=== PATIENT | female | born 1980 | race Caucasian/White ===

== ENCOUNTER 2016-07-01 06:25 | Inpatient (IN) | payer BC ==
[~2016-07-01] VITALS: Ht 162.6 cm; Wt 81.6 kg
[2016-07-01] VITALS (38 sets, daily range): BP systolic 102–132; BP diastolic 65–105; PULSE 70–151; RESP 17–19; TEMP 97.4–98; O2SAT 100
[~2016-07-01 06:25] MED LIST: ENBR50IN3 SC; FENU610C PO; IBUP800 PO; PRED5 PO; VAGI10TA VA
[2016-07-01] MEDS ORDERED: ENBR50IN2 SQ (08:21)
[2016-07-01] MEDS ORDERED: PROM50TA RECTAL (08:21)
[2016-07-01] MEDS ORDERED: PROT40TA PO (08:21)
[2016-07-01] MEDS ORDERED: PROM25TA5 PO (08:21)
[2016-07-01] MEDS ORDERED: LACTATED RINGER'S 1000 ML INJ 1,000 ML IV PRN (08:33)
[2016-07-01] MEDS ORDERED: LIDOCAINE HCL 1% 50 ML VIAL I-DERMAL PRN (08:45)
[2016-07-01] MEDS ORDERED: SODIUM CHLORID 0.9% 500 ML INJ 500 ML IV PRN (08:45)
[2016-07-01] MEDS ORDERED: LIDOCAINE HCL 1% 50 ML VIAL INFIL PRN (08:45)
[2016-07-01] MEDS ORDERED: CITRIC ACID-SODIUM CITRATE LIQ 30 ML UDC PO SCH (08:45)
[2016-07-01] MEDS ORDERED: OXYTOCIN 30 UNITS-500ML PREMIX 500 ML IV SCH (08:45)
[2016-07-01] MEDS ORDERED: OXYTOCIN 30 UNITS-500ML PREMIX 500 ML IV ONE ×2 (08:45→14:15)
[2016-07-01] MEDS ORDERED: MINERAL OIL 10 ML VIAL TOPICAL PRN (08:45)
[2016-07-01] MEDS ORDERED: SODIUM CHLOR 0.9% 1000 ML INJ 1,000 ML IV PRN (08:53)
[2016-07-01] MEDS: LACTATED RINGER'S 1000 ML INJ 1,000 ML IV SCH ×2 (08:54→13:10)
[2016-07-01] MEDS ORDERED: PENICILLIN G POTASSIUM INJ 5,000,000 UNITS in SODIUM CHLORIDE 0.9% INJ 100 ML IV ONE (09:00)
[2016-07-01 09:22] LABS: BASOPHIL % 0.3 % (0.0-2.0); EOSINOPHIL # 0.1 TH/MM3 (0-0.4); EOSINOPHIL % 0.9 % (0.0-4.0); HEMATOCRIT 37.2 % (35.0-46.0); HEMO FLAGS DIFF FINAL; LYMPH % 29.3 % (9.0-44.0); LYMPHOCYTE # 2.9 TH/MM3 (1.0-4.8); MEAN CELL VOLUME 87.4 FL (80.0-100.0); MEAN CORPUSCULAR HGB CONC 34.3 % (32.0-36.0); MONO % 9.7 % (0.0-8.0); NEUT % 59.8 % (16.0-70.0); PLATELET COUNT 223 TH/MM3 (150-450); RED BLOOD COUNT 4.26 MIL/MM3 (4.00-5.30); RED CELL DISTRIBUTION WIDTH 13.8 % (11.6-17.2)
[2016-07-01 09:27] LABS: BACTERIA, URINE OCC /hpf; BLOOD, URINE NEG (NEG); COMMENT (UR) CULT NOT INDICATED; CULTURE IF INDICATED CULT NOT INDICATED; GLUCOSE,URINE NEG (NEG); KETONE, URINE TRACE mg/dL (NEG); MUCUS URINE FEW /lpf (OCC); NITRITE,URINE NEG (NEG); PH, URINE 6.5 (5.0-8.5); SQUAMOUS EPITHELIAL CELL URINE 3 /hpf (0-5); URINE COLOR YELLOW (YELLW/STRAW)
--- NOTE | 2016-07-01 09:27 | MH ---
cc: PAMELA BOCANEGRA DATE OF ADMISSION: 07/01/2016 REASON FOR ADMISSION Induction of labor. HISTORY OF PRESENT ILLNESS Ms. Devine is a 36-year-old white female para 1-0-1-1 whose last menstrual period and early ultrasound put her at 39+ weeks. Her cervix was 3 in the office, 80%. She desired elective induction. After to discussion of the risks and benefits, she is admitted for that same. PAST OB HISTORY She is para 1-0-1-1. She had one TAB. She was on methotrexate. She had one full-term without complications. 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 PAST MEDICAL HISTORY Remarkable for gastroesophageal reflux disease. Anxiety. PAST SURGICAL HISTORY She had orthopedic surgery on her right knee as a child. SOCIAL HISTORY She . Never smoked. 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 She really uses alcohol, none in . FAMILY HISTORY Remarkable for high blood pressure, osteoporosis and cervical cancer in her sister. ALLERGIES REGLAN. MORPHINE. CODEINE. MEDICATIONS COMING INTO THE HOSPITAL vitamins 1 p.o. q. Day. Folic acid extra 1 p.o. q. Day. Enbrel 500 mg/mL q. Week. REVIEW OF SYSTEMS No headaches nor shortness of breath nor chest pressure pain. The baby is active and moving. No rupture of membranes. She is having some regular contractions, although they are not painful. PHYSICAL EXAMINATION GENERAL: A well-developed, well-nourished female in no acute distress. HEENT: Normocephalic, atraumatic. NECK: Supple. Trachea is in the midline. No thyromegaly or adenopathy. CHEST: Clear to auscultation. HEART: Regular rate and rhythm. ABDOMEN: Gravid, nontender. Fundal height seems appropriate. Estimated weights 7, 6. PELVIC: Her cervix is 3 cm, at 80%, vertex, -2. Rupture of membranes reveals clear fluid. EXTREMITIES: There is slight lower extremity edema, otherwise normal. ASSESSMENT AND PLAN 1. Intrauterine at 39 weeks 2. Positive GBS. We will go ahead and start her on some penicillin and notify the Nursery. 3. GERD. She has been on Protonix. Once the baby delivers, I think she will be fine. We will just follow her and use medication as needed. R. Pamela Bocanegra MD RJV/SSB /8:40 AM /9:20 AM
[2016-07-01] MEDS ORDERED: fentaNYL 2MCG-BUPIV 0.125% INJ 100 ML ONE (10:26)
[2016-07-01] MEDS ORDERED: ePHEDrine/NS 25 MG/5 ML SYR ONE (11:07)
[2016-07-01] MEDS ORDERED: PENICILLIN G POTASSIUM INJ 2,500,000 UNITS in SODIUM CHLORIDE 0.9% INJ 100 ML IV SCH (13:00)
[2016-07-01] MEDS ORDERED: ePHEDrine/NS 25 MG/5 ML SYR IV PRN (13:15)
[2016-07-01] MEDS ORDERED: fentaNYL 2MCG-BUPIV 0.125% 100 ML EPIDURAL SCH (13:15)
[2016-07-01] MEDS ORDERED: NO SYSTEM NARCOTICS PRN (13:15)
[2016-07-01] MEDS ORDERED: DO NOT ADMINISTER ANTICOAGULANTS PRN (13:15)
--- NOTE | 2016-07-01 14:06 | PD.OB.DELI ---
Delivery Date: Jul 01, 2016 Anesthesia: Epidural Episiotomy: None Vaginal Delivery: Normal Presentation: Occiput anterior Nuchal Cord: x1 Delayed cord clamping (45 sec): Yes : Male One Minute : 9 Five Minute : 9 Weight: 8/5 Placenta: Spontaneous delivery, Intact, 3 vessel cord Laceration: Perineal laceration, 2 deg Repair: Vicryl running Additional Information nice delivery of Rony Ness (dad is Mendez) Tight cord reduced EBL was 350cc Eduardo Bocanegra MD Jul 01, 2016 14:06
[2016-07-01] MEDS ORDERED: BENZOCAINE 20% TOPICAL SPRAY 60 ML CAN TOPICAL PRN (14:15)
[2016-07-01] MEDS ORDERED: ALUMINUM/MAGNESIUM/SIMETH 30 ML CUP PO PRN (14:15)
[2016-07-01] MEDS ORDERED: ZOLPIDEM TARTRATE 5 MG TAB PO PRN (14:15)
[2016-07-01] MEDS ORDERED: ACETAMINOPHEN 325 MG TAB PO PRN (14:15)
[2016-07-01] MEDS ORDERED: WITCH HAZEL 50%/GLYCERIN 12.5% 40 PAD JAR TOPICAL PRN (14:15)
[2016-07-01] MEDS ORDERED: SODIUM CHLORIDE 0.9% FLUSH 10 ML FLUSH IV FLUSH PRN (14:15)
[2016-07-01] MEDS ORDERED: ONDANSETRON ODT 4 MG TAB PO PRN (14:15)
[2016-07-01] MEDS ORDERED: ONDANSETRON HCL 4 MG/2 ML VIAL ONE (14:43)
[2016-07-01] MEDS: IBUPROFEN 600 MG TAB PO PRN ×2 (15:13→22:45)
[2016-07-01] MEDS ORDERED: DIPHTH/TETANUS/ACEL PERTUSSIS (BOOSTER) 0.5 ML VIAL/PFS IM ONE (16:00)
[2016-07-01] MEDS ORDERED: MEASLES, MUMPS, RUBELLA VACCINE 0.5 ML VIAL SQ ONE (16:00)
[2016-07-01] MEDS: DOCUSATE SODIUM 50 MG/SENNA 8.6 MG TAB PO PRN (19:51)
[2016-07-01] MEDS: oxyCODONE/ACETAMINOPHEN 5 MG/325 MG TAB PO PRN (19:51)
[2016-07-01] MEDS ORDERED: SODIUM CHLORIDE 0.9% FLUSH 10 ML FLUSH IV FLUSH SCH (21:00)
[2016-07-02] MEDS: oxyCODONE/ACETAMINOPHEN 5 MG/325 MG TAB PO PRN ×4 (03:42→21:57)
--- NOTE | 2016-07-02 08:32 | HHI.OB ---
Subjective Post Day: 1 Remarks Doing well, pain is well controlled Bleeding is normal Baby is good Objective Vitals/I&O Vital Signs Date Time Temp Pulse Resp B/P Pulse Ox O2 Delivery O2 Flow Rate FiO2 07/01/16 19:44 98.0 07/01/16 19:44 70 18 109/68 100 07/01/16 15:48 84 103/71 07/01/16 15:15 80 113/74 07/01/16 15:00 90 114/87 07/01/16 14:46 92 118/85 07/01/16 14:31 96 128/91 07/01/16 14:15 90 116/80 07/01/16 14:00 97.8 07/01/16 13:45 18 07/01/16 13:31 151 132/105 07/01/16 13:00 91 102/66 07/01/16 12:55 88 07/01/16 12:40 84 07/01/16 12:35 73 07/01/16 12:30 89 116/77 07/01/16 12:30 71 07/01/16 12:25 82 07/01/16 12:22 97.8 07/01/16 12:20 90 07/01/16 12:15 88 07/01/16 12:15 85 107/80 07/01/16 12:10 80 07/01/16 12:05 82 07/01/16 12:00 19 07/01/16 12:00 88 07/01/16 12:00 79 106/75 07/01/16 11:55 83 109/69 07/01/16 11:55 78 07/01/16 11:50 78 07/01/16 11:50 77 113/65 07/01/16 11:45 95 07/01/16 11:45 82 106/66 07/01/16 11:40 84 07/01/16 11:40 82 07/01/16 11:40 106/68 07/01/16 11:35 81 07/01/16 11:35 89 108/68 07/01/16 11:30 94 111/66 07/01/16 11:30 81 07/01/16 11:25 86 07/01/16 11:25 92 111/72 07/01/16 11:20 83 07/01/16 11:20 94 114/71 07/01/16 11:15 89 07/01/16 11:15 91 114/83 07/01/16 11:12 89 114/65 07/01/16 11:10 90 07/01/16 11:05 88 07/01/16 11:00 86 130/81 07/01/16 11:00 87 18 07/01/16 10:00 82 18 118/82 07/01/16 10:00 97.4 07/01/16 10:00 118/82 07/01/16 09:25 75 07/01/16 09:00 17 07/01/16 09:00 75 117/81 Objective Remarks GENERAL: Well-nourished, well-developed patient. CARDIOVASCULAR: Regular rate and rhythm without murmurs, gallops, or rubs. RESPIRATORY: Breath sounds equal bilaterally. No accessory muscle use. ABDOMEN/GI: Abdomen soft, non-tender. Fundus: Firm, non-tender at umbilicus. GENITOURINARY: Light to moderate bleeding. EXTREMITIES: No cyanosis or edema, non-tender, without signs of DVT. Medications and IVs Current Medications Medications (Trade) Dose Ordered Sig/Aide Route Start Time Stop Time Status Last Admin (NS Flush) 2 ml BID IV FLUSH 07/01/16 21:00 (NS Flush) 2 ml UNSCH PRN IV FLUSH 07/01/16 14:15 07/01/16 15:19 (Tylenol) 650 mg Q4H PRN PO 07/01/16 14:15 (Motrin) 600 mg Q6H PRN PO 07/01/16 14:15 07/01/16 22:45 (Percocet 5-325 Mg) 1 tab Q4H PRN PO 07/01/16 14:15 (Percocet 5-325 Mg) 2 tab Q4H PRN PO 07/01/16 14:15 07/02/16 03:42 (Americaine 20% Top Spr) 1 spray Q4H PRN TOPICAL 07/01/16 14:15 07/01/16 19:52 (Tucks Pads) 1 applic QID PRN TOPICAL 07/01/16 14:15 07/01/16 19:51 (Nelia-Colace) 2 tab Q12H PRN PO 07/01/16 14:15 07/01/16 19:51 (Ambien) 5 mg HS PRN PO 07/01/16 14:15 (Mag-Al Plus Susp Liq) 15 ml Q8H PRN PO 07/01/16 14:15 (Zofran Odt) 4 mg Q6H PRN PO 07/01/16 14:15 Assessment/Plan Assessment and Plan PPD #1 Routine fpc tomorrow with baby Eduardo Bocanegra MD Jul 02, 2016 08:32
[2016-07-02] MEDS: IBUPROFEN 600 MG TAB PO PRN ×3 (08:48→21:58)
--- NOTE | 2016-07-02 09:04 | HHI.DCPOC ---
Discharge Care Plan Diagnosis: (1) (normal spontaneous vaginal delivery) Your Health Problems Are: Vaginal delivery Report Symptoms to Your Doctor -Temperate above 100.5 degrees -Redness, of incision or excessive or foul smelling drainage -Unusual pain or calf pain -Increased vaginal bleeding -Painful or difficulty urinating -Feelings of extreme sadness or anxiety after 2 weeks Goals to Promote Your Health * To prevent worsening of your condition and complications * To maintain your health at the optimal level Directions to Meet Your Goals Take your medications as prescribed Follow your dietary instruction Follow activity as directed Ensure plenty of rest for recovery Drink fluids for hydration Keep your appointments as scheduled Take your immunizations and boosters as scheduled If your symptoms worsen call your PCP, if no PCP go to Urgent Care Center or Emergency Room Smoking is Dangerous to Your Health. Avoid second hand smoke Call the 24-hour crisis hotline for domestic abuse at Katia Howell Jul 02, 2016 09:04
[2016-07-02 19:55] VITALS: BP 112/84; PULSE 88; RESP 16; TEMP 98.5; O2SAT 99
[2016-07-02] MEDS: DOCUSATE SODIUM 50 MG/SENNA 8.6 MG TAB PO PRN (21:57)
[2016-07-03] MEDS: IBUPROFEN 600 MG TAB PO PRN ×2 (04:31→10:52)
[2016-07-03] MEDS ORDERED: IBUP-232 PO (08:15)
[2016-07-03] MEDS ORDERED: OXYC1TAB63 PO (08:15)
--- NOTE | 2016-07-03 08:48 | HHI.OB ---
Subjective Post Day: 2 Objective Vitals/I&O Vital Signs Date Time Temp Pulse Resp B/P Pulse Ox O2 Delivery O2 Flow Rate FiO2 07/02/16 19:55 88 16 112/84 99 07/02/16 19:55 98.5 Objective Remarks GENERAL: Well-nourished, well-developed patient. CARDIOVASCULAR: Regular rate and rhythm without murmurs, gallops, or rubs. RESPIRATORY: Breath sounds equal bilaterally. No accessory muscle use. ABDOMEN/GI: Abdomen soft, non-tender. Fundus: Firm, non-tender at umbilicus. GENITOURINARY: Light to moderate bleeding. EXTREMITIES: No cyanosis or edema, non-tender, without signs of DVT. Medications and IVs Current Medications Medications (Trade) Dose Ordered Sig/Aide Route Start Time Stop Time Status Last Admin (NS Flush) 2 ml BID IV FLUSH 07/01/16 21:00 (NS Flush) 2 ml UNSCH PRN IV FLUSH 07/01/16 14:15 07/01/16 15:19 (Tylenol) 650 mg Q4H PRN PO 07/01/16 14:15 (Motrin) 600 mg Q6H PRN PO 07/01/16 14:15 07/03/16 04:31 (Percocet 5-325 Mg) 1 tab Q4H PRN PO 07/01/16 14:15 07/02/16 21:57 (Percocet 5-325 Mg) 2 tab Q4H PRN PO 07/01/16 14:15 07/02/16 03:42 (Americaine 20% Top Spr) 1 spray Q4H PRN TOPICAL 07/01/16 14:15 07/01/16 19:52 (Tucks Pads) 1 applic QID PRN TOPICAL 07/01/16 14:15 07/01/16 19:51 (Nelia-Colace) 2 tab Q12H PRN PO 07/01/16 14:15 07/02/16 21:57 (Ambien) 5 mg HS PRN PO 07/01/16 14:15 (Mag-Al Plus Susp Liq) 15 ml Q8H PRN PO 07/01/16 14:15 (Zofran Odt) 4 mg Q6H PRN PO 07/01/16 14:15 Assessment/Plan Assessment and Plan PPD #2 pt doing well pain well managed with oral pain medication breast feeding Routine care Discharge Planning dc home today Katia Howell Jul 03, 2016 08:48
--- NOTE | 2016-07-03 09:05 | HHI.DS ---
Admission Date Jul 01, 2016 at 06:25 Discharge Date: Jul 03, 2016 Admitting Diagnosis term Diagnosis: (1) (normal spontaneous vaginal delivery) Diagnosis: Principal Delivery Date: Jul 01, 2016 Vaginal Delivery: Normal : Male Brief History term induction Hospital Course term induction routine Pt Condition on Discharge: Good Discharge Disposition: Discharge Home Discharge Instructions Diet Instructions: As Tolerated, No Restrictions Additional Diet Instructions: Drink at least 8 - 16 oz bottles of water a day Activities You Can Perform: Shower Only-No Bath, Sitz Bath Activities to Avoid: Lifting/Bending, Sexual Activity Additional Activity Instruc.: No driving until off pain medications Do not lift anything heavier than your baby in an infant carrier Follow up 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[facility] [place] New Medications: Ibuprofen (Ibuprofen) 600 Mg Tab 600 MG PO Q6H Pain Management #30 Ref 1 TAB Oxycodone-Acetaminophen (Oxycodone-Acetaminophen) 5-325 mg Tab 1 TAB PO Q4H moderate pain #12 TAB Continued Medications: Etanercept PF Inj (Enbrel PF Inj) 50 mg/ml Syr 50 MG SQ Q7D #4 Ref 0 SYRINGE Discontinued Medications: Pantoprazole (Protonix) 40 Mg Tab 40 MG PO DAILY Reflux #30 Ref 0 TAB Promethazine (Phenergan) 25 Mg Tab 25 MG PO DIRECTED Nausea/Vomiting #1 Ref 0 TAB Promethazine (Phenergan) 50 Mg Tab 50 MG RECTAL Q6H PRN NAUSEA OR VOMITING Ref 0 TAB SantopadreKatia TUMBLER MACHINE 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
[2016-07-03] MEDS: oxyCODONE/ACETAMINOPHEN 5 MG/325 MG TAB PO PRN (10:52)
[2016-07-03] MEDS: DOCUSATE SODIUM 50 MG/SENNA 8.6 MG TAB PO PRN (10:52)
== END 2016-07-03 13:41 | disposition home or self-care (01) | DRG 775 ==
LOC: H2EB 06:25 → H1EA 17:34
PROVIDERS: ADMIT Obstetrics & Gynecology; ATTEND Obstetrics & Gynecology
PROC: 10E0XZZ Delivery of Products of Conception, External Approach (ICD-10-PCS; principal; 2016-07-01)
PROC: 0KQM0ZZ Repair Perineum Muscle, Open Approach (ICD-10-PCS; 2016-07-01)
PROC: 3E0R3CZ (ICD-10-PCS; 2016-07-01)
PROC: 00HU33Z Insertion of Infusion Device into Spinal Canal, Percutaneous Approach (ICD-10-PCS; 2016-07-01)
DX: O70.1 Second degree perineal laceration during delivery (principal); Z37.0 Single live birth; K21.9 Gastro-esophageal reflux disease without esophagitis; O99.62 Diseases of the digestive system complicating childbirth; O99.824 Streptococcus B carrier state complicating childbirth; Z3A.39 39 weeks gestation of pregnancy
CPT/HCPCS: 59025; 81001; 85025; 86850; 86900; 86901; 90715; J2405; J2540; J2590; J7120